=== PATIENT | male | born 1995 | race Hispanic/Latino ===

== ENCOUNTER 2021-01-10 20:57 | Emergency (ER) | payer BC ==
[~2021-01-10] VITALS: Ht 182.9 cm; Wt 90.0 kg
[2021-01-10 21:30] LABS: HEMOGLOBIN 15.3 g/dl (14.0-18.0); IMMATURE GRANULOCYTES 0.8 % (0.0-5.0); MEAN CELL VOLUME 90.4 fL CALC (80.0-100.0); MEAN CORPUSCULAR HGB 30.1 pG CALC (26.0-32.0); MEAN CORPUSCULAR HGB CONC 33.3 g/dL CAL (32.0-36.0); NEUT# 7.2 thou/uL (1.82-7.42); RED BLOOD COUNT 5.09 mill/uL (4.70-6.10)
[2021-01-10 22:00] LABS: ALKALINE PHOSPHATASE 79 u/l (38-126); AMYLASE 83 u/l (30-110); ANION GAP 15 (6-22 (CALC)); BILIRUBIN, TOTAL 0.5 mg/dL (0.0-1.4); BUN 17 mg/dL (9-20); BUN/CREATININE RATIO 18 (12-20 (CALC)); CARBON DIOXIDE 28 mmol/l (22-30); CHLORIDE 102 mmol/l (95-108); GFR > 60 ML/MIN (>=60 (CALC)); GFR FOR AFR.AMER. > 60 ML/MIN (>=60 (CALC)); LIPASE 130 u/l (23-300); SGOT/AST 25 u/l (17-59); SODIUM 142 mmol/l (137-146); TOTAL PROTEIN 8.4 g/dL (6.3-8.2)
[2021-01-10 22:06] LABS: ACT PARTIAL THROMBO TIME 24.5 SECONDS (20.0-32.5); PROTHROMBIN TIME 10.4 SECONDS (9.0-12.5)
[2021-01-10 22:12] LABS: MYOGLOBIN 37 ng/mL (0 - 121)
[2021-01-10 22:20] LABS: D-DIMER 0.17 mg/L (0.19-0.60)
[2021-01-10] MEDS ORDERED: IMITREX100 M1 PO (22:30)
[2021-01-10] MEDS ORDERED: MECLIZINE25 MG PO (22:30)
[2021-01-10 22:43] VITALS: BP 128/57
== END 2021-01-10 22:43 | disposition home or self-care (01) | DRG 313 ==
LOC: ED 20:57
PROVIDERS: Family Medicine
DX: R07.89 Other chest pain (principal); G43.909 Migraine, unspecified, not intractable, without status migrainosus; Z20.822 Contact with and (suspected) exposure to COVID-19